=== PATIENT | male | born 1965 | race Caucasian/White ===

== ENCOUNTER 2021-03-13 11:35 | Emergency (ER) | payer OTHER, SELFPAY ==
--- NOTE | ~2021-03-13 | XR_ITS ---
XR chest 2V DATE: 03/13/2021 12:15 INDICATION: Dyspnea on exertion. Smoker. History of emphysema. TECHNIQUE: PA and lateral views COMPARISON: 04/06/2000 PA and lateral chest FINDINGS: Bilateral hyperinflation consistent with COPD. No hilar or mediastinal enlargement. No pulm onary infiltrate or consolidation, pleural effusion or pulmonary vascular congestion or pneumothorax. Included skeletal structures are unremarkable. IMPRESSION: COPD Reviewed, dictated and finalized at location A. IMPRESSION: COPD
[2021-03-13 11:53] VITALS: BP 120/79; PULSE 58; RESP 20; TEMP 37.1; O2SAT 100
--- NOTE | 2021-03-13 11:57 | ECG_ITS ---
Measurements Intervals [place] Rate: 53 P: 80 NM: 127 QRS: 81 QRSD: 131 T: 72 QT: 440 QTc: 414 Interpretive Statements SINUS BRADYCARDIA RIGHT AXIS DEVIATION RIGHT BUNDLE BRANCH BLOCK BASELINE ARTIFACT- I, II, III, AVR, AVF, V1, V3-V6 ABNORMAL ECG Electronically Signed On 03-13-2021 12:37:10 CDT by Keenan Storm D.O.
[2021-03-13 12:20] VITALS: PULSE 54
[2021-03-13 12:23] VITALS: O2SAT 100
[2021-03-13 12:45] LABS: Basophils Absolute Auto 0.1 K/mm3 (0.0-0.1); Basophils Percent Auto 1.6 % (0.2-1.2); Eosinophils Absolute Auto 0.2 K/mm3 (0-0.3); Eosinophils Percent Auto 2.6 % (0-4.4); Hematocrit 40.3 % (42.0-52.0); Hemoglobin 13.1 g/dL (14.0-18.0); Immature Granulocyte Absolute 0.01 K/mm3 (0.00-0.031); Immature Granulocyte Percent A 0.2 % (0-0.5); Lymphocytes Absolute Auto 1.75 K/mm3 (0.9-3.2); Lymphocytes Percent Auto 30.8 % (18.3-44.2); Mean Corpuscular HGB Conc 32.5 g/dl (32-36); Mean Corpuscular Hemoglobin 29.1 pg (26-34); Mean Corpuscular Volume 89.6 fl (80-100); Mean Platelet Volume 8.9 fl (7.4-10.4); Monocytes Absolute Auto 0.6 K/mm3 (0.1-0.6); Neutrophils Absolute Auto 3.1 K/mm3 (1.3-6.7); Neutrophils Percent Auto 54.8 % (45.5-73.1); Platelet Count Result 356 k/mm3 (150-375); Red Cell Distribution Width 12.7 % (11.5-14.5); White Blood Count 5.7 K/mm3 (4.5-10.0)
[2021-03-13 13:00] LABS: Alanine Aminotransferase 15 U/L (4-50); Albumin Level 4.5 g/dL (3.5-5.1); Alkaline Phosphatase 58 U/L (38-126); Aspartate Amino Transferase 32 U/L (17-59); Bilirubin,Total 1.5 mg/dL (0.2-1.3)
[2021-03-13 13:01] LABS: Anion Gap 6 mmol/L (8-16); Blood Urea Nitrogen 17 mg/dL (9-20); Calcium 9.2 mg/dL (8.4-10.2); Carbon Dioxide 28 mmol/L (22-30); Chloride 105 mmol/L (98-107); D Dimer 0.35 ug/mL (<0.48); Estimated Glomerular Filt Rate > 60; Glucose 104 mg/dL (75-110); Potassium 4.2 mmol/L (3.4-5.0); Sodium 139 mmol/L (137-145)
--- NOTE | 2021-03-13 14:07 | ED.GENADULT ---
HPI - General Adult General Chief complaint: Shortness of Breath/Dyspnea Stated complaint: sent by PCP, CP and GIRARD, smoker Time Seen by Provider: 03/13/21 12:16 Source: patient and family Mode of arrival: ambulatory Limitations: no limitations History of Present Illness HPI narrative: Patient is 55 years old white male, referred to the emergency room by his family physician because of chronic history of chest pain or shortness of breath on exertion for the last 2 years. Today patient decided to see a family physician for the first time for after years of no family physician. Patient denies anything new about his chest pain and shortness of breath today compared to 1 week ago, 1 month ago or 1 year ago. But he is tired of it and decided to see if somebody can figure it out. Patient denies any fever, chills, nausea, vomiting, diarrhea, constipation, back pain. Patient is a smoker for years, does not drink, uses marijuana almost daily. Related Data Allergies Allergy/AdvReac Type Severity Reaction Status Date / Time No Known Allergies Allergy Verified 03/13/21 12:22 Review of Systems Review of Systems: Narrative: CONSTITUTIONAL: Denies fever, chills, or sweats. EYES: Denies visual changes, redness, or discharge. ENT: Denies rhinorrhea, congestion, sore throat, or otalgia. CARDIOVASCULAR: Denies chest pain, palpitations, or edema. RESPIRATORY: Denies cough or dyspnea. GASTROINTESTINAL: Denies abdominal pain, nausea, vomiting, or diarrhea. GENITOURINARY: Denies dysuria or hematuria. SKIN: Denies rash or itching. MUSCULOSKELETAL: Denies back pain, joint pain, or myalgia. NEUROLOGIC: Denies headache, numbness, or weakness. PSYCHIATRIC: Denies anxiety or depression. Course Vital Signs Vital signs: Vital Signs Temperature 37.1 C 03/13/21 11:53 Pulse Rate 58 L 03/13/21 11:53 Respiratory Rate 20 03/13/21 11:53 Blood Pressure 120/79 03/13/21 11:53 Pulse Oximetry 100 03/13/21 11:53 Temperature 37.1 C 03/13/21 11:53 Pulse Rate 48 L 03/13/21 14:24 Respiratory Rate 18 03/13/21 14:24 Blood Pressure 106/78 03/13/21 14:24 Pulse Oximetry 100 03/13/21 14:24 Medical Decision Making [facility] Narrative Medical decision making narrative: Patient complaining of chest pain and shortness of breath for the last 2 years, nothing different today, patient symptom exactly the same as last week, last month and last year. Labs, EKG, chest x-ray ordered. Further plan to follow Differential Diagnosis Differential Diagnosis: Chronic pain, electrolyte imbalance, malignancy, depression Vital Signs Vital Signs: Vital Signs Temperature 37.1 C 03/13/21 11:53 Pulse Rate 58 L 03/13/21 11:53 Respiratory Rate 20 03/13/21 11:53 Blood Pressure 120/79 03/13/21 11:53 Pulse Oximetry 100 03/13/21 11:53 Temperature 37.1 C 03/13/21 11:53 Pulse Rate 48 L 03/13/21 14:24 Respiratory Rate 18 03/13/21 14:24 Blood Pressure 106/78 03/13/21 14:24 Pulse Oximetry 100 03/13/21 14:24 Lab Data Result diagrams: 03/13/21 12:37 03/13/21 12:37 Labs: Lab Results 03/13/21 03/13/21 03/13/21 Range/Units 12:37 12:37 12:37 WBC 5.7 (4.5-10.0) K/mm3 RBC 4.50 L (4.6-6.20) M/mm3 Hgb 13.1 L (14.0-18.0) g/dL Hct 40.3 L (42.0-52.0) % MCV 89.6 (80-100) fl MCH 29.1 (26-34) pg MCHC 32.5 (32-36) g/dl RDW 12.7 (11.5-14.5) % Plt Count 356 (150-375) k/mm3 MPV 8.9 (7.4-10.4) fl Immature Gran % (Auto) 0.2 (0-0.5) % Neut % (Auto) 54.8 (45.5-73.1) % Lymph % (Auto) 30.8 (18.3-44.2) % [place] % (Auto) 10.0 H (2.6-8.5) % Eos % (Auto) 2.6 (0-4.4) % Baso % (Auto) 1.6 H (0.2-1.2) % Lymph # (Auto) 1.75 (0.9-3.2) K/mm3 [place] # (Auto) 0.6 (0.1-0.6) K/mm3 Eos # (Auto) 0.2 (0-0.3) K/mm3 Baso # (Auto) 0.1 (0.0-0.1) K/mm3 Abs Immat Gran (auto) 0.01 (0.00-0.031) K/mm3 Absolute Neuts (auto) 3.1 (1.3-6.7) K/mm3 A
--- NOTE | 2021-03-13 14:17 | PC.NURSE ---
chemKaity, added on trop I and TSH
[2021-03-13 14:24] VITALS: BP 106/78; PULSE 48; RESP 18; O2SAT 100
[2021-03-13 14:44] LABS: Troponin I < 0.012 ng/mL (0.000-0.034)
[2021-03-13 16:27] VITALS: BP 105/74; PULSE 57; RESP 19; O2SAT 100
== END 2021-03-13 16:29 | disposition home or self-care (01) ==
PROVIDERS: Emergency Medicine; Emergency Provider Emergency Medicine; PCP Emergency Medicine
DX: R07.9 Chest pain, unspecified (principal); G89.29 Other chronic pain; J44.9 Chronic obstructive pulmonary disease, unspecified; F17.210 Nicotine dependence, cigarettes, uncomplicated; R00.1 Bradycardia, unspecified; I45.10 Unspecified right bundle-branch block
CPT/HCPCS: 36415; 71046; 80048; 80076; 84443; 84484; 85025; 85380; 93005; 99284

== ENCOUNTER → 2021-03-16 11:31 | Outpatient (CLI) | payer OTHER, SELFPAY ==
--- NOTE | ~2021-03-16 | XR_ITS ---
XR lumbar spine 2-3V DATE: 03/16/2021 11:56 INDICATION: Back pain, tingling in legs TECHNIQUE: AP, lateral, coned lateral lumbosacral views COMPARISON: 03/20/2015 lumbar spine FINDINGS: There is minimal dextroscoliosis. No fracture or bone destruction. The lumbar and included lower thoracic pedicles are intact. No spond ylolysis or spondylolisthesis. Lumbar and lumbosacral interspaces are relatively preserved except for mild loss of height at L5-S1. There is minimal degenerative spurring. The sacroiliac joints appear normal. IMPRESSION: Minimal dextroscoliosis Minimal degenerative change Reviewed, dictated and finalized at location B.
== END ==
PROVIDERS: PCP Emergency Medicine; Visit Provider Emergency Medicine
DX: R20.2 Paresthesia of skin (principal); M54.5 Low back pain
CPT/HCPCS: 72100

== ENCOUNTER → 2021-03-23 11:30 | Outpatient (CLI) | payer OTHER, SELFPAY ==
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
== END ==
PROVIDERS: PCP Emergency Medicine; Visit Provider Emergency Medicine
DX: M25.562 Pain in left knee (principal); M25.561 Pain in right knee
CPT/HCPCS: 73564